=== PATIENT | male | born 1980 | race Caucasian/White ===

== ENCOUNTER 2017-12-17 10:41 | Emergency (ER) | payer OTHER ==
[~2017-12-17] VITALS: Ht 165.1 cm; Wt 74.8 kg
[2017-12-17] MEDS ORDERED: ONDANSETRON HCL INJ 2 MG/ML VIAL IV NR (11:16)
[2017-12-17] MEDS ORDERED: KETOROLAC TROMETHAMINE 30 MG/ML VIAL IV NR (11:16)
[2017-12-17 11:32] LABS: COLOR,URINE YELLOW (YELLOW)
[2017-12-17 11:33] LABS: BASOPHILS # (AUTO) 0.1 (0.0-0.1); BASOPHILS % 0.9 % (0.0-1.0); BILIRUBIN,URINE NEGATIVE (NEGATIVE); CLARITY,URINE CLEAR (CLEAR); EOSINOPHILS # (AUTO) 0.1 (0.0-0.4); EOSINOPHILS % 1.1 % (0.0-6.0); HEMATOCRIT 48.2 % (38.2-49.6); HEMOGLOBIN 16.5 g/dL (14.0-18.0); KETONES,URINE NEGATIVE (NEGATIVE); LEUKOCYTE ESTERASE ,URINE NEGATIVE (NEGATIVE); LYMPHOCYTES # (AUTO) 2.2 (1.0-3.2); LYMPHOCYTES % 25.6 % (18.0-39.1); MEAN CORPUSCULAR HEMOGLOBIN 30.1 pg (28-32); MEAN CORPUSCULAR HGB CONC 34.2 g/dL (31-35); MEAN CORPUSCULAR VOLUME 87.8 fL (81-99); MONOCYTES % 11.2 % (4.4-11.3); NEUTROPHILS # (AUTO) 5.2 (2.1-6.9); NEUTROPHILS % 60.7 % (38.7-80.0); NITRITE,URINE NEGATIVE (NEGATIVE); PLATELET COUNT 243 x10e3/uL (140-360); PROTEIN,URINE DIPSTICK TRACE (NEGATIVE); RED BLOOD COUNT 5.49 x10e6/uL (4.3-5.7); RED CELL DISTRIBUTION WIDTH 13.1 % (11.7-14.4); URINE UROBILINOGEN 0.2 mg/dL (0.2 - 1)
[2017-12-17 11:42] LABS: BACTERIA,URINE FEW /HPF; EPITHELIAL CELLS,URINE RARE /LPF; RBC,URINE 0-5 /HPF (0-5); WBC,URINE (MAN) 0-5 /HPF (0-5)
[2017-12-17 11:45] LABS: ALANINE AMINOTRANSFERASE 55 IU/L (0-55); ALBUMIN 4.5 g/dL (3.5-5.0); ALBUMIN/GLOBULIN RATIO 1.3 (0.8-2.0); ALKALINE PHOSPHATASE 81 IU/L (40-150); ANION GAP 16.7 mmol/L (8-16); BLOOD UREA NITROGEN 11 mg/dL (7-26); BUN/CREATININE RATIO 10 (6-25); CALCIUM 10.1 mg/dL (8.4-10.2); CARBON DIOXIDE 22 mmol/L (22-29); CHLORIDE 103 mmol/L (98-107); CREATININE, SERUM 1.09 mg/dL (0.72-1.25); EST GLOMERULAR FILTRATION RATE > 60 ML/MIN (60-); GLUCOSE 118 mg/dL (74-118); POTASSIUM 3.7 mmol/L (3.5-5.1); SODIUM 138 mmol/L (136-145)
--- NOTE | 2017-12-17 12:35 | Diagnostic Imaging Report ---
EXAM: CT Abdomen and Pelvis WITHOUT contrast INDICATION: ^stone protocol ^[id number] ^[id number] COMPARISON: None. TECHNIQUE: Abdomen and pelvis were scanned utilizing a multidetector helical scanner from the lung base to the pubic symphysis without administration of IV contrast. Absence of intravenous contrast decreases sensitivity for detection of focal lesions and vascular pathology. Coronal and sagittal reformations were obtained. Routine protocol was performed. IV CONTRAST: None. ORAL CONTRAST: Water RADIATION DOSE: Total DLP: 405.4 mGy*cm Estimated effective dose: (DLP x 0.015 x size factor) mSv COMPLICATIONS: None FINDINGS: LINES and TUBES: None. LOWER THORAX: Unremarkable HEPATOBILIARY: Diffuse hepatic steatosis. No focal hepatic lesions. No biliary ductal dilation. GALLBLADDER: No radio-opaque stones or sludge. No wall thickening. SPLEEN: No splenomegaly. PANCREAS: No focal masses or ductal dilatation. ADRENALS: No adrenal nodules KIDNEYS/URETERS: No hydronephrosis. No cystic or solid mass lesions. 2 adjacent nonobstructing calcified stones in the inferior pole of the left kidney on series 3, image 71. GI TRACT: No abnormal distention, wall thickening, or evidence of bowel obstruction. Appendix is normal. PELVIC ORGANS/BLADDER: The urinary bladder appears unremarkable without calcified stones. The prostate is normal in size. 8 mm calcification within the right testis. There is no calcifications visualized in the urethra. LYMPH NODES: No lymphadenopathy. VESSELS: Unremarkable. PERITONEUM / RETROPERITONEUM: No free air or fluid. BONES: Unremarkable. SOFT TISSUES: Unremarkable. IMPRESSION: 1. Nonobstructing left nephrolithiasis. 2. No additional calcified stones in the remaining collecting system, urinary bladder, or urethra. Signed by: Dr. Cherise Hernandez M.D. on 12/17/2017 12:32 PM
[2017-12-17] MEDS ORDERED: FLOMAX0.4 MG PO (12:43)
[2017-12-17] MEDS ORDERED: HYDROCODONE/APAP 10MG-325MG TAB PO NR (13:45)
[2017-12-17] MEDS ORDERED: TAMSULOSIN HCL 0.4 MG CAP PO NR (14:00)
== END 2017-12-17 14:14 | disposition home or self-care (01) ==
LOC: ER 10:41
DX: R30.0 Dysuria (principal); N20.0 Calculus of kidney
CPT/HCPCS: 36415; 74176; 80053; 81001; 85025; 99284; J1885; J2405

== ENCOUNTER 2018-09-27 16:37 | Observation (INO) | payer OTHER ==
[~2018-09-27] VITALS: Ht 165.1 cm; Wt 72.7 kg
[~2018-09-27 16:37] MED LIST: FLOMAX0.4 MG PO
--- OUTSIDE RECORDS SUMMARY | 2018-09-27 16:40 | XMS REPORT ---
Author Author [facility] Address Unknown Phone Unavailable Care Team Providers Care Court Abstractor Name Role Phone Tito HORN Unavailable Unavailable Problems This patient has no known problems. Allergies, Adverse Reactions, Alerts This patient has no known allergies or adverse reactions. Medications This patient has no known medications. Results Test Description Test Time Test Comments Text Results Atomic Results Result Comments CT ABDOMEN/PELVIS WO 2017-12-17 12:27:00 [place] [address] Patient Name: JOHNNY RICE MR #: [id number] : 1980 Age/Sex: 37/M Req #: [id number] Adm Physician: Ordered by: MARIKA RICHTER ENVIRONMENTAL CONSERVATION PROFESSOR Report #: [id number] Location: ER Room/Bed: Procedure: [id number] CT/CT ABDOMEN/PELVIS WO Exam Date: 12/17/17 Exam Time: 1144 REPORT STATUS: Signed EXAM: CT Abdomen and Pelvis WITHOUT contrast INDICA TION: stone protocol [id number] COMPARISON: None. TECHNIQUE: Abdomen and pelvis were scanned utilizing a multidetector helical scanner from the lung base to the pubic symphysis without administration of IV contrast. Absence of intravenous contrast decreases sensitivity for detection of focal lesions and vascular pathology. Coronal and sagittal reformations were obtained. Routine protocol was performed. IV CONTRAST: None. ORAL CONTRAST: Water RADIATION DOSE: Total DLP: 405.4 mGy*cm Estimated effective dose: (DLP x 0.015 x size factor) mSv COMPLICATIONS: None FINDINGS: LINES and TUBES: None. LOWER THORAX: Unremarkable HEPATOBILIARY: Diffuse hepatic steatosis. No focal hepatic lesions. No biliary ductal dilation. GALLBLADDER: No radio-opaque stones or sludge. No wall thickening. SPLEEN: No splenomegaly. PANCREAS: No focal masses or ductal dilatation. ADRENALS: No adrenal nodules KIDNEYS/URETERS: No hydronephrosis. No cystic or solid mass lesions. 2 adjacent nonobstructing calcified stones in the inferior pole of the left kidney on series 3, image 71. GI TRACT: No abnormal distention, wall thickening, or evidence of bowel obstruction. Appendix is normal. PELVIC ORGANS/BLADDER: The urinary bladder appears unr emarkable without calcified stones. The prostate is normal in size. 8 mm calcification within the right testis. There is no calcifications visualized in the urethra. LYMPH NODES: No lymphadenopathy. VESSELS: Unremarkable. PERITONEUM / RETROPERITONEUM: No free air or fluid. BONES: Unremarkable. SOFT TISSUES: Unremarkable. IMPRESSION: 1. Nonobstructing left nephrolithiasis. 2. No additional calcified stones in the remaining collecting system, urinary bladder, or urethra. Signed by: Dr. Savage Sanchez M.D. on 12/17/2017 12:32 PM Dictated By: SAVAGE SANCHEZ MD 1232 Transcribed By: RICARDO on 12/17/17 1232 COPY TO: MARIKA RICHTER NP
[2018-09-27] MEDS ORDERED: KETOROLAC TROMETHAMINE 30 MG/ML VIAL IV ONE (16:48)
[2018-09-27] MEDS ORDERED: ONDANSETRON HCL INJ 2MG/ML 2ML 2 MG/ML VIAL IV ONE (16:48)
[2018-09-27] MEDS ORDERED: HYDRALAZINE HCL 20 MG/ML VIAL IV ONE (16:48)
[2018-09-27] MEDS ORDERED: DEXAMETHASONE SOD PHOS 10 MG/1 ML VIAL IM ONE (17:00)
[2018-09-27] MEDS ORDERED: HYDROCODONE/APAP 10MG-325MG TAB PO ONE (17:00)
[2018-09-27 17:34] LABS: BASOPHILS # (AUTO) 0.1 (0.0-0.1); BASOPHILS % 0.7 % (0.0-1.0); EOSINOPHILS # (AUTO) 0.3 (0.0-0.4); EOSINOPHILS % 3.2 % (0.0-6.0); HEMATOCRIT 45.7 % (38.2-49.6); HEMOGLOBIN 15.6 g/dL (14.0-18.0); LYMPHOCYTES # (AUTO) 2.4 (1.0-3.2); LYMPHOCYTES % 29.9 % (18.0-39.1); MEAN CORPUSCULAR HEMOGLOBIN 30.1 pg (28-32); MEAN CORPUSCULAR HGB CONC 34.1 g/dL (31-35); MEAN CORPUSCULAR VOLUME 88.1 fL (81-99); MONOCYTES # (AUTO) 0.5 (0.2-0.8); MONOCYTES % 6.6 % (4.4-11.3); NEUTROPHILS # (AUTO) 4.7 (2.1-6.9); NEUTROPHILS % 58.1 % (38.7-80.0); PLATELET COUNT 221 x10e3/uL (140-360); RED BLOOD COUNT 5.19 x10e6/uL (4.3-5.7); RED CELL DISTRIBUTION WIDTH 12.4 % (11.7-14.4)
[2018-09-27 17:46] LABS: INR 0.82; PROTHROMBIN TIME 11.8 seconds (11.9-14.5)
[2018-09-27 17:47] LABS: PARTIAL THROMBOPLASTIN TIME 28.6 seconds (23.8-35.5)
[2018-09-27] MEDS ORDERED: ADDERALL 30 MG30 MG PEG (17:53)
[2018-09-27 17:55] LABS: ALANINE AMINOTRANSFERASE 22 IU/L (0-55); ALBUMIN 3.9 g/dL (3.5-5.0); ALBUMIN/GLOBULIN RATIO 1.1 (0.8-2.0); ALKALINE PHOSPHATASE 98 IU/L (40-150); ANION GAP 17.4 mmol/L (8-16); BLOOD UREA NITROGEN 10 mg/dL (7-26); BUN/CREATININE RATIO 11 (6-25); CALCIUM 9.4 mg/dL (8.4-10.2); CARBON DIOXIDE 21 mmol/L (22-29); CHLORIDE 103 mmol/L (98-107); CREATINE KINASE 127 IU/L (30-200); CREATININE, SERUM 0.91 mg/dL (0.72-1.25); EST GLOMERULAR FILTRATION RATE > 60 ML/MIN (60-); GLUCOSE 96 mg/dL (74-118); POTASSIUM 3.4 mmol/L (3.5-5.1); SODIUM 138 mmol/L (136-145)
[2018-09-27] MEDS ORDERED: MORPHINE SULFATE 2 MG/ML SYR 1ML IV PRN (18:00)
[2018-09-27] MEDS ORDERED: HYDRALAZINE HCL 20 MG/ML VIAL IV PRN (18:00)
[2018-09-27 19:50] VITALS: BP 135/94
[2018-09-27 19:56] VITALS: BP 155/91
[2018-09-27 20:45] VITALS: BP 155/91
[2018-09-27] MEDS: ONDANSETRON HCL INJ 2MG/ML 2ML 2 MG/ML VIAL IV PRN (20:45)
[2018-09-27] MEDS: MORPHINE SULFATE INJ 4 MG/ML INJ 1ML IV PRN (20:45)
[2018-09-27 20:48] VITALS: BP 155/91
[2018-09-27 21:00] VITALS: BP 155/91
--- NOTE | 2018-09-27 22:31 | NUR ---
Report received from NEIL Castaneda. Patient admitted in unit @1950 by wheelchair. Patient received alert/oriented x3.Denied pain and no SOB. No respiratory distress noted. family in the room. Head to toe assessment completed. No skin issued noted. Bed in lower position,locked. Call may within reach. Will continue to monitor.
[2018-09-28] VITALS: BP 145/90
[2018-09-28] MEDS: MORPHINE SULFATE INJ 4 MG/ML INJ 1ML IV PRN ×2 (00:56→06:18)
[2018-09-28] MEDS: ONDANSETRON HCL INJ 2MG/ML 2ML 2 MG/ML VIAL IV PRN ×2 (00:56→06:18)
[2018-09-28 02:01] LABS: BASOPHILS # (AUTO) 0.1 (0.0-0.1); BASOPHILS % 0.4 % (0.0-1.0); EOSINOPHILS % 0.1 % (0.0-6.0); HEMATOCRIT 47.3 % (38.2-49.6); HEMOGLOBIN 16.2 g/dL (14.0-18.0); LYMPHOCYTES # (AUTO) 1.1 (1.0-3.2); LYMPHOCYTES % 9.1 % (18.0-39.1); MEAN CORPUSCULAR HEMOGLOBIN 29.7 pg (28-32); MEAN CORPUSCULAR HGB CONC 34.2 g/dL (31-35); MEAN CORPUSCULAR VOLUME 86.6 fL (81-99); MONOCYTES # (AUTO) 0.1 (0.2-0.8); MONOCYTES % 0.8 % (4.4-11.3); NEUTROPHILS # (AUTO) 10.4 (2.1-6.9); PLATELET COUNT 253 x10e3/uL (140-360); RED BLOOD COUNT 5.46 x10e6/uL (4.3-5.7); RED CELL DISTRIBUTION WIDTH 12.4 % (11.7-14.4)
[2018-09-28 02:47] LABS: ALANINE AMINOTRANSFERASE 22 IU/L (0-55); ALBUMIN 3.9 g/dL (3.5-5.0); ALBUMIN/GLOBULIN RATIO 1.1 (0.8-2.0); ALKALINE PHOSPHATASE 97 IU/L (40-150); ANION GAP 15.2 mmol/L (8-16); BLOOD UREA NITROGEN 11 mg/dL (7-26); BUN/CREATININE RATIO 11 (6-25); CALCIUM 9.5 mg/dL (8.4-10.2); CARBON DIOXIDE 23 mmol/L (22-29); CHLORIDE 101 mmol/L (98-107); EST GLOMERULAR FILTRATION RATE > 60 ML/MIN (60-); GLUCOSE 156 mg/dL (74-118); SODIUM 135 mmol/L (136-145)
[2018-09-28 02:53] LABS: POTASSIUM 4.2 mmol/L (3.5-5.1)
[2018-09-28 03:14] LABS: CREATINE KINASE MB 1.3 ng/mL (0-5.0)
[2018-09-28 04:00] VITALS: BP 146/96
--- NOTE | 2018-09-28 07:00 | NUR ---
Pt received resting in bed. Alert and oriented x4. Oriented to staff and surroundings. Encouraged to press call may if help needed. Pt verbalized understanding of teaching. Will monitor
[2018-09-28] MEDS ORDERED: BACLOFEN10 MG PO (07:56)
[2018-09-28] MEDS ORDERED: GABAPENTIN300 MG PO (07:56)
[2018-09-28] MEDS ORDERED: HYDROCHLOROTHIAZIDE 25 MG TAB PO NR (08:00)
[2018-09-28] MEDS ORDERED: MORPHINE SULFATE 2 MG/ML SYR 1ML IV PRN (08:00)
[2018-09-28] MEDS ORDERED: BACLOFEN 10 MG TAB PO PRN (08:00)
[2018-09-28 08:03] VITALS: BP 148/95
[2018-09-28 08:04] VITALS: BP 148/95
[2018-09-28] MEDS ORDERED: HYDRALAZINE HCL 20 MG/ML VIAL IV PRN (08:15)
[2018-09-28] MEDS ORDERED: FAMOTIDINE 20 MG TAB PO SCH (08:30)
[2018-09-28] MEDS: GABAPENTIN 100 MG CAP PO SCH ×2 (08:33→14:02)
--- NOTE | 2018-09-28 08:33 | NUR ---
All meds given as ordered. Pt educated regarding plan of care. Will monitor
[2018-09-28] MEDS ORDERED: LIDOCAINE 5% PATCH TP SCH (09:00)
[2018-09-28] MEDS ORDERED: AMLODIPINE BESYLATE 10 MG TAB PO SCH (09:00)
[2018-09-28 10:14] LABS: CREATINE KINASE MB 0.8 ng/mL (0-5.0)
[2018-09-28 11:29] VITALS: BP 137/71
--- NOTE | 2018-09-28 12:37 | Diagnostic Imaging Report ---
TECHNIQUE: Magnetic resonance imaging of the LEFT SHOULDER was performed WITHOUT injected contrast. COMPARISON: None available. HISTORY: Shoulder pain FINDINGS: MUSCLES AND TENDONS: Rotator Cuff: Tendons: Supraspinatus: Intact Infraspinatus: Intact Teres Minor: Intact Subscapularis: Intact Muscles: No focal muscle atrophy. Biceps Tendon: The long head of the biceps tendon is intact and within the intertubercular groove. GLENOHUMERAL JOINT: Glenoid Labrum: Posterior labral tear axial image 17 with paralabral cyst. Articular Cartilage: No focal defect. AC JOINT AND ACROMION: Mild hypertrophic degenerative changes of the acromioclavicular joint. Downsloping acromion. BONE: No specific evidence of a focal or infiltrative bone marrow replacing abnormality. No acute fracture. SOFT TISSUES: Otherwise, the soft tissues appear unremarkable. IMPRESSION: Intact rotator cuff Nondisplaced posterior labral tear. Signed by: Dr. Dre Vázquez M.D. on 09/28/2018 12:34 PM
--- NOTE | 2018-09-28 12:56 | Consultation ---
DATE OF CONSULTATION: 09/28/2018 CHIEF COMPLAINT: Neck pain and left shoulder pain. HISTORY OF PRESENT ILLNESS: This patient is a 38-year-old male, who complains of increasing pain in his right neck, right shoulder and right arm for the past three weeks. He has a significant history of a cervical fusion in 2006. He states three weeks ago, he noticed some onset of numbness and tingling in the finger tips of his left hand. He said that over a period of a week, this began to ascend up into the left arm. He states over the past week, he started noticing pain in the neck and left upper arm and left shoulder. He states this got progressively worse until it became so severe that he presented to the patient's [facility] ER. He states that this time he has numbness in all his fingertips and hand. He states the numbness encompasses the forearm up to the elbow. He states, he has weakness with gripping and lifting with the arm. He localizes pain to the left side of his neck and the left shoulder blade as well as the left shoulder. PAST MEDICAL HISTORY: ADHD. PAST SURGICAL HISTORY: Cervical fusion 2006. SOCIAL HISTORY: The patient states he drinks on occasion. He admits to chewing tobacco daily and smoking 1 to 2 cigarettes on a daily basis. He denies any illicit drug use. MEDICATIONS: See MAR. ALLERGIES: NO KNOWN DRUG ALLERGIES. PHYSICAL EXAMINATION: In general, this is a well-nourished male, who appears healthy. He appears to be in mild distress. He is awake, alert, and oriented appropriately. Gross inspection of his neck and left shoulder area shows an anterior cervical approach scar on the left side of his neck. There is no swelling or erythema in the left shoulder. He has tenderness to palpation around the subdeltoid area up to the left cervical paraspinal musculature. The majority of his tenderness is in the left scapulothoracic region. There are palpable muscle spasms in the left scapulothoracic region. He has limited cervical range of motion. He has virtually no left lateral flexion. Spurling's test is positive on the left side. He has diminished range of motion in the shoulder. Active range of motion shows 90 degrees of forward elevation and abduction, 40 degrees of external rotation. Internal rotation to PSIS. Attempts of passive range of motion on the left shoulder are painful. Exam is compromised secondary to pain. He has diminished strength in all distributions in the left shoulder and left elbow. Second Rigger strength is diminished in the left arm. He has subjective decreased sensation in all of his finger, left hand and left forearm. Otherwise, distal neurovascular exam is normal. IMAGING DATA: At this time, there is no imaging available. There are no x-rays of the neck or shoulder. ASSESSMENT AND PLAN: This is a 38-year-old male with a significant history of cervical fusion with acute cervical radiculopathy into the left arm. The findings were discussed with the patient. He is already set up for a MRI of the cervical spine and left shoulder. I believe the majority of his symptoms are actually coming from the neck and not the left shoulder. He will likely need epidural steroid injections. We will await the results of the cervical spine MRI to proceed accordingly. Thank you for the consultation. Dictated by Stefano Dumont PA-C MD NAKUL Mcconnell/LOUISA /[id number]
--- NOTE | 2018-09-28 13:25 | Diagnostic Imaging Report ---
Examination: MRI SPINE CERVICAL WO CONTRAST History: Neck pain radiating to left shoulder for the past 2 weeks. Left cervical radiculopathy. Comparison studies: None Technique: Sagittal T1, T2 and IR, axial T2 and axial gradient echo intravenous contrast: None Findings: Alignment: Straightening of normal lordosis. No scoliosis. Cervicomedullary junction: No abnormalities. Patent foramen magnum. Soft tissues: No T2 hyperintense inflammatory changes. Spinal cord: Normal in size and signal from the foramen magnum through T1. Vertebrae: No fractures, infection or neoplasm. Prior anterior discectomy and fusion at C5 and C6. Degenerative changes: C1-C2: No abnormalities. C2-C3: No abnormalities. C3-C4: Small central disc protrusion. No foraminal or canal stenosis. C4-C5: No abnormalities. C5-C6: No abnormalities. C6-C7: Diffuse disc osteophyte, but some bilateral uncovertebral arthropathy result in mild right and moderate left neural foraminal narrowing and mild canal stenosis. C7-T1: No abnormalities. IMPRESSION: 1. Degenerative changes at C3-C4 and C6-C7 with moderate left foraminal narrowing and mild canal stenosis at C6-C7. 2. Prior anterior discectomy and fusion at C5 and C6. Signed by: Dr. Leisa Alexandra M.D. on 09/28/2018 1:22 PM
--- NOTE | 2018-09-28 14:55 | NUR ---
Pt given discharge instructions regarding meds, diet, activities, s/s to report, and follow up appointment. Pt verbalized understanding of teaching. Refused wheelchair. Escorted off unit with . Pt took all belongings.
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
== END 2018-09-28 14:57 | disposition home or self-care (01) ==
LOC: ER 16:37 → ERHOLD 17:54 → IMCU 20:05
PROVIDERS: ADMIT Internal Medicine; ATTEND Internal Medicine
DX: M54.12 Radiculopathy, cervical region (principal); S43.492A Other sprain of left shoulder joint, initial encounter; R20.2 Paresthesia of skin; S29.012A Strain of muscle and tendon of back wall of thorax, initial encounter; I10 Essential (primary) hypertension; M25.512 Pain in left shoulder; F90.9 Attention-deficit hyperactivity disorder, unspecified type; Z82.49 Family history of ischemic heart disease and other diseases of the circulatory system; M48.02 Spinal stenosis, cervical region; Z72.0 Tobacco use; Z72.89 Other problems related to lifestyle
CPT/HCPCS: 36415; 72141; 73221; 80053 ×2; 82550 ×2; 82553 ×2; 84484 ×2; 85025 ×2; 85610; 85730; 93005; 99284; G0378 ×2; J1100; J1885; J2270 ×3; J2405 ×2

== ENCOUNTER 2022-04-12 10:22 | Emergency (ER) | payer OTHER ==
[~2022-04-12] VITALS: Ht 165.1 cm; Wt 72.6 kg
[~2022-04-12 10:22] MED LIST changes: +ADDERALL 30 MG30 MG PEG; +BACLOFEN10 MG PO; +GABAPENTIN300 MG PO
[2022-04-12] MEDS ORDERED: DEXAMETHASONE 4 MG TAB PO STA (11:28)
[2022-04-12] MEDS ORDERED: DEXAMETHASONE SOD PHOS 10 MG/1 ML VIAL IM ONE (11:45)
[2022-04-12] MEDS ORDERED: DEXAMETHASONE SOD PHOS 10 MG/1 ML VIAL ONE (11:47)
[2022-04-12] MEDS ORDERED: LORATADINE 10 MG TAB ONE (11:47)
[2022-04-12] MEDS ORDERED: FAMOTIDINE 20 MG TAB ONE (11:48)
[2022-04-12] MEDS ORDERED: FAMOTIDINE 20 MG TAB PO ONE (12:00)
[2022-04-13] MEDS ORDERED: LORATADINE 10 MG TAB PO SCH (09:00)
== END 2022-04-12 11:38 | disposition home or self-care (01) ==
LOC: ER 10:31
DX: R21 Rash and other nonspecific skin eruption (principal); I10 Essential (primary) hypertension; F41.9 Anxiety disorder, unspecified; F31.9 Bipolar disorder, unspecified; Z87.442 Personal history of urinary calculi
CPT/HCPCS: 99282; J1100

== ENCOUNTER 2023-10-24 16:36 | Emergency (ER) | payer OTHER ==
[~2023-10-24] VITALS: Ht 165.1 cm; Wt 72.6 kg
[2023-10-24 16:41] VITALS: PULSE 75; RESP 16; TEMP 98.4
[2023-10-24] MEDS ORDERED: Morphine 4mg INJECTION 4 MG/ML INJ IV STA (17:21)
[2023-10-24 17:52] LABS: BASOPHILS # (AUTO) 0.1 (0.0-0.1); EOSINOPHILS # (AUTO) 0.1 (0.0-0.4); EOSINOPHILS % 1.6 % (0.0-6.0); HEMATOCRIT 43.9 % (38.2-49.6); HEMOGLOBIN 14.5 g/dL (14.0-18.0); MEAN CORPUSCULAR HEMOGLOBIN 28.8 pg (28-32); MEAN CORPUSCULAR VOLUME 87.1 fL (81-99); MONOCYTES # (AUTO) 0.6 (0.2-0.8); MONOCYTES % 9.1 % (4.4-11.3); NEUTROPHILS # (AUTO) 3.4 (2.1-6.9); NEUTROPHILS % 55.8 % (38.7-80.0); PLATELET COUNT 303 x10e3/uL (140-360); RED BLOOD COUNT 5.04 x10e6/uL (4.3-5.7); RED CELL DISTRIBUTION WIDTH 13.2 % (11.7-14.4); WHITE BLOOD COUNT 6.15 x10e3/uL (4.8-10.8)
[2023-10-24 17:55] LABS: INR 0.89; PROTHROMBIN TIME 12.5 seconds (11.9-14.5)
[2023-10-24 17:56] LABS: PARTIAL THROMBOPLASTIN TIME 27.7 seconds (23.8-35.5)
[2023-10-24 18:02] LABS: ALBUMIN 4.3 g/dL (3.5-5.0); ALBUMIN/GLOBULIN RATIO 1.1 (0.8-2.0); ANION GAP 14.7 mmol/L (8-16); BILIRUBIN,TOTAL 0.8 mg/dL (0.2-1.2); CREATININE, SERUM 1.35 mg/dL (0.72-1.25); MAGNESIUM 1.9 MG/DL (1.3-2.1); POTASSIUM 3.7 mmol/L (3.5-5.1); TOTAL PROTEIN 8.2 g/dL (6.5-8.1)
[2023-10-24] MEDS ORDERED: KETOROLAC TROMETHAMINE 30 MG/ML VIAL ONE (18:27)
[2023-10-24] MEDS: SODIUM CHLORIDE 0.9% 1000ML 1,000 ML IV STA (18:27)
[2023-10-24] MEDS: ONDANSETRON HCL INJ 2MG/ML 2ML 2 MG/ML VIAL IV STA (18:27)
[2023-10-24] MEDS: KETOROLAC TROMETHAMINE 30 MG/ML VIAL IV STA (18:28)
[2023-10-24] MEDS ORDERED: IOPAMIDOL 370 MG/ML 100 ML INFUS..BTL INJ ONE (18:45)
[2023-10-24 19:06] LABS: BILIRUBIN,URINE NEGATIVE (NEGATIVE); CLARITY,URINE SL CLOUDY (CLEAR); COLOR,URINE AMBER (YELLOW); GLUCOSE, URINE NEGATIVE (NEGATIVE); KETONES,URINE TRACE (NEGATIVE); LEUKOCYTE ESTERASE ,URINE NEGATIVE (NEGATIVE); NITRITE,URINE NEGATIVE (NEGATIVE); PH,URINE 6 (5 - 7); PROTEIN,URINE DIPSTICK 1+ (NEGATIVE); URINE UROBILINOGEN 0.2 mg/dL (0.2 - 1)
[2023-10-24 19:21] LABS: BACTERIA,URINE MODERATE /HPF; WBC,URINE (MAN) 0-5 /HPF (0-5)
[2023-10-24 19:22] LABS: MUCUS,URINE MODERATE (RARE)
[2023-10-24] MEDS ORDERED: ONDANSETRON ODT4 MG SL (19:26)
[2023-10-24 20:28] VITALS: PULSE 78; RESP 16; TEMP 98.4; O2SAT 100
== END 2023-10-24 19:30 | disposition home or self-care (01) ==
LOC: ER 17:22
DX: R10.32 Left lower quadrant pain (principal); N20.0 Calculus of kidney; R11.2 Nausea with vomiting, unspecified; K76.0 Fatty (change of) liver, not elsewhere classified
CPT/HCPCS: 36415; 74177; 80053; 81001; 83735; 85025; 85610; 85730; 87086; 87186; 99284; J1885; J2405; J2470; J7030; Q9967; J2270

== ENCOUNTER 2023-11-26 20:10 | Emergency (ER) | payer OTHER ==
[~2023-11-26] VITALS: Ht 165.1 cm; Wt 72.6 kg
[~2023-11-26 20:10] MED LIST changes: +ONDANSETRON ODT4 MG SL
[2023-11-26 20:40] VITALS: PULSE 74; RESP 18; TEMP 98.3
[2023-11-26 20:48] LABS: BASOPHILS # (AUTO) 0.1 (0.0-0.1); BASOPHILS % 1.1 % (0.0-1.0); EOSINOPHILS # (AUTO) 0.1 (0.0-0.4); EOSINOPHILS % 1.7 % (0.0-6.0); HEMATOCRIT 45.4 % (38.2-49.6); HEMOGLOBIN 14.8 g/dL (14.0-18.0); LYMPHOCYTES % 29.9 % (18.0-39.1); MEAN CORPUSCULAR HGB CONC 32.6 g/dL (31-35); MEAN CORPUSCULAR VOLUME 85.8 fL (81-99); MONOCYTES # (AUTO) 0.7 (0.2-0.8); MONOCYTES % 9.9 % (4.4-11.3); NEUTROPHILS # (AUTO) 3.8 (2.1-6.9); NEUTROPHILS % 56.9 % (38.7-80.0); PLATELET COUNT 294 x10e3/uL (140-360); RED BLOOD COUNT 5.29 x10e6/uL (4.3-5.7); RED CELL DISTRIBUTION WIDTH 12.8 % (11.7-14.4); WHITE BLOOD COUNT 6.66 x10e3/uL (4.8-10.8)
[2023-11-26 21:09] LABS: ALBUMIN 4.4 g/dL (3.5-5.0); ANION GAP 15.7 mmol/L (8-16); BILIRUBIN,TOTAL 0.3 mg/dL (0.2-1.2); CALCIUM 9.4 mg/dL (8.4-10.2); CREATININE, SERUM 1.32 mg/dL (0.72-1.25); POTASSIUM 3.7 mmol/L (3.5-5.1); TOTAL PROTEIN 8.6 g/dL (6.5-8.1)
[2023-11-26] MEDS ORDERED: ONDANSETRON HCL INJ 2MG/ML 2ML 2 MG/ML VIAL ONE (21:20)
[2023-11-26] MEDS ORDERED: IOPAMIDOL 370 MG/ML 100 ML INFUS..BTL INJ ONE (21:28)
[2023-11-26] MEDS: Morphine 4mg INJECTION 4 MG/ML INJ IV STA (22:06)
[2023-11-26] MEDS: SODIUM CHLORIDE 0.9% 1000ML 1,000 ML IV STA (22:08)
[2023-11-26] MEDS ORDERED: MIRALAX17 GM PO (22:58)
[2023-11-26 23:11] VITALS: BP 139/86; O2SAT 100
== END 2023-11-26 23:07 | disposition home or self-care (01) ==
LOC: ER 20:15
DX: R10.32 Left lower quadrant pain (principal); N20.0 Calculus of kidney; I10 Essential (primary) hypertension; K76.0 Fatty (change of) liver, not elsewhere classified; B20 Human immunodeficiency virus [HIV] disease; F41.9 Anxiety disorder, unspecified; F31.9 Bipolar disorder, unspecified
CPT/HCPCS: 36415; 74177; 80053; 83690; 85025; 99284; J2270; J2405; J7030; Q9967